=== PATIENT | female | born 1985 | race Caucasian/White ===

== ENCOUNTER 2019-10-12 16:32 | Emergency (ER) | payer MEDICAID ==
[~2019-10-12] VITALS: Ht 157.5 cm; Wt 88.9 kg
[2019-10-12 16:37] VITALS: BP 110/70
--- NOTE | 2019-10-12 16:52 | NUR ---
SENT BY URGENT CARE FOR COUGH. PLACED ON 2 L NC BY URGENT CARE AND EMS. PT REPORTS INCREASED WORK OF BREATHING SINCE THIS AM DESPITE USING AT HOME INHALER. URGENT CARE WANTS TO RULE OUT PE. PATIENT STATES CHEST DYSCOMFORT OF 5/10 AT THIS TIME. PATIENT POSITIONED FOR COMFORT; HOB ELEVATED; BEDRAILS UP X2; BED DOWN. ER MD MADE AWARE OF PT STATUS.
[2019-10-12] MEDS ORDERED: IPRATROPIUM 0.02% 0.5 MG/2.5 ML NEBU INH ONE (17:45)
[2019-10-12] MEDS ORDERED: ALBUTEROL 0.083% 2.5 MG/3 ML NEBU INH ONE (17:45)
[2019-10-12] MEDS ORDERED: predniSONE 20 MG TAB PO ONE (17:45)
[2019-10-12 18:11] LABS: BASOPHILS % (AUTO) 0.4 % (0.0-2.0); EOSINOPHILS # (AUTO) 0.1 K/uL (0-0.4); EOSINOPHILS % (AUTO) 1.2 % (0.0-4.0); HEMOGLOBIN 14.4 g/dL (12.0-16.0); LYMPHOCYTES # (AUTO) 1.7 K/uL (2.5-16.5); LYMPHOCYTES % (AUTO) 19.7 % (20.5-51.1); MEAN CORPUSCULAR HEMOGLOBIN 33 pg (27-31); MEAN CORPUSCULAR HGB CONC 35 g/dL (33-37); MONOCYTES # (AUTO) 0.5 K/uL (0.8-1.0); MONOCYTES % (AUTO) 6.3 % (1.7-9.3); NEUTROPHILS # (AUTO) 6.1 K/uL (1.8-7.7); NEUTROPHILS % (AUTO) 72.4 % (42.2-75.2); PLATELET COUNT (AUTO) 196 K/uL (140-450); RED BLOOD CELL COUNT(AUTO) 4.36 MIL/uL (4.20-5.40); RED CELL DISTRIBUTION WIDTH 12.5 % (11.6-13.7); WHITE BLOOD COUNT (AUTO) 8.5 K/uL (4.8-10.8)
[2019-10-12 18:26] LABS: ALBUMIN 3.7 g/dL (3.4-5.0); ANION GAP 7.5 (8-16); CARBON DIOXIDE 30.7 mmol/L (21-32); CREATININE 0.8 mg/dL (0.6-1.3); POTASSIUM 3.2 mmol/L (3.5-5.1); TOTAL BILIRUBIN 0.6 mg/dL (0.0-1.0)
[2019-10-12 18:32] LABS: PROTHROMBIN TIME 9.9 secs (10.8-13.4)
--- NOTE | 2019-10-12 19:18 | NUR ---
Pt report given to JANKI MCKENZIE. Transfer of care at this time.
--- NOTE | 2019-10-12 19:27 | NUR ---
PATIENT ALERT AND AWAKE, BREATHING EVEN AND UNLABORED. GIVEN UPDATE WE ARE WAITING FOR CT
--- NOTE | 2019-10-12 20:01 | NUR ---
PT TAKEN TO CT
--- NOTE | 2019-10-12 20:19 | NUR ---
PT RETURN FROM CT
--- NOTE | 2019-10-12 20:45 | NUR ---
Dr. Payton examining patient.
[2019-10-12 21:01] VITALS: BP 120/75
--- NOTE | 2019-10-12 21:01 | NUR ---
Patient discharged with v/s stable. Written and verbal after care instructions about asthma given and explained. Patient alert, oriented and verbalized understanding of instructions. Ambulatory with steady gait. All questions addressed prior to discharge. ID band removed. Patient advised to follow up with PMD. Rx of prednisone given. Patient educated on indication of medication including possible reaction and side effects. Opportunity to ask questions provided and answered.
== END 2019-10-12 21:01 | disposition home or self-care (01) ==
LOC: MED 16:32
DX: J45.901 Unspecified asthma with (acute) exacerbation (principal); R51 Headache; Z88.1 Allergy status to other antibiotic agents; Z88.8 Allergy status to other drugs, medicaments and biological substances
CPT/HCPCS: 36415; 36600; 71275; 80053; 81025; 82803; 83880; 84484; 85025; 85379; 85610; 85730; 93005; 94640; 99291; J7512; J7613; J7644; Q9967

== ENCOUNTER 2020-04-14 07:45 | Emergency (ER) | payer MEDICAID ==
[~2020-04-14] VITALS: Ht 157.5 cm; Wt 86.6 kg
[2020-04-14 07:48] VITALS: BP 114/89
--- NOTE | 2020-04-14 07:56 | NUR ---
Patient ambulated to bed 5. RN evaluating patient at bedside.
--- NOTE | 2020-04-14 08:05 | NUR ---
34 YEAR OLD FEMALE COMPLAINS OF RASH IN BUTTOCKS REGTION. PT STATES THAT THIS RASH JUST STARTED WEEK AGO AND IS WORRIED BECAUSE THESE SYMPTOMS SIMILAR TO PREVIOUS RYAN SARIAH SYNDROME FLAREUP. PT WORRIED ABOUT NEW MEDICATION FOR SEIZURES SHE STARTED FOR SEIZURES IN FEBRUARY BEING THE REASON. PT STATES RASH IS ITCHY, NOT AWARE OF ANY DISCHARGE. PT AOX4, BREATHING EVEN AND UNLABORED, SKIN WARM AND DRY. BED IN LOWEST POSITION, LOCKED, BED RAIL UPX1. PMH - RYAN SARIAH SYNDROME, ASTHMA, SEIZURE, RAZA RAZA DISEASE
--- NOTE | 2020-04-14 08:07 | NUR ---
DR. TORRES EVALUATING PT AT BEDSIDE
[2020-04-14] MEDS ORDERED: predniSONE 20 MG TAB PO ONE (08:35)
--- NOTE | 2020-04-14 08:45 | NUR ---
ZULEMAD MADE AWARE PT JUST REMEMBERED SHE WANTED TO TELL HIM THAT HER EYES HAVE BEEN DRY AND SORE THROAT. PER ERMD SHE HAS TO TAKE BENADRYL WHEN SHE GETS HOME, WILL NOT GET IT HERE BECAUSE SHE DROVE. PT MADE AWARE
--- NOTE | 2020-04-14 09:10 | NUR ---
Patient discharged with v/s stable. Written and verbal after care instructions about rash given and explained. Patient alert, oriented and verbalized understanding of instructions. Ambulatory with steady gait. All questions addressed prior to discharge. ID band removed. Patient advised to follow up with PMD. Rx of prednisone given. Patient educated on indication of medication including possible reaction and side effects. Opportunity to ask questions provided and answered.
[2020-04-14 09:14] VITALS: BP 125/82
== END 2020-04-14 09:10 | disposition home or self-care (01) ==
LOC: MED 07:45
DX: R21 Rash and other nonspecific skin eruption (principal); J45.909 Unspecified asthma, uncomplicated; L51.1 Stevens-Johnson syndrome; Q82.8 Other specified congenital malformations of skin; R56.9 Unspecified convulsions; Z88.7 Allergy status to serum and vaccine; Z88.1 Allergy status to other antibiotic agents; Z88.6 Allergy status to analgesic agent
CPT/HCPCS: 81002; 81025; 99283; J7512

== ENCOUNTER 2021-02-04 19:42 | Emergency (ER) | payer MEDICAID ==
[~2021-02-04] VITALS: Ht 157.5 cm; Wt 86.2 kg
[2021-02-04 19:49] VITALS: BP 109/52
--- NOTE | 2021-02-04 19:49 | NUR ---
TO BED AMBULATORY
--- NOTE | 2021-02-04 20:18 | NUR ---
Said examining patient.
[2021-02-04] MEDS ORDERED: KETOROLAC 15 MG/ML VIAL IM ONE (20:25)
[2021-02-04] MEDS ORDERED: ACETAMINOPHEN EXTRA STRENGTH 500 MG TAB ONE (20:29)
[2021-02-04] MEDS ORDERED: ACETAMINOPHEN EXTRA STRENGTH 500 MG TAB PO ONE ×2 (20:50→23:40)
[2021-02-04 21:12] LABS: BASOPHILS % (AUTO) 0.6 % (0.0-2.0); EOSINOPHILS # (AUTO) 0.1 K/uL (0-0.4); EOSINOPHILS % (AUTO) 1.5 % (0.0-4.0); HEMATOCRIT 39.1 % (36-48); HEMOGLOBIN 13.3 g/dL (12.0-16.0); LYMPHOCYTES # (AUTO) 2.9 K/uL (2.5-16.5); LYMPHOCYTES % (AUTO) 37.1 % (20.5-51.1); MEAN CORPUSCULAR HEMOGLOBIN 32 pg (27-31); MEAN CORPUSCULAR HGB CONC 34 g/dL (33-37); MEAN CORPUSCULAR VOLUME 93.5 fL (80-94); MONOCYTES # (AUTO) 0.6 K/uL (0.8-1.0); MONOCYTES % (AUTO) 7.3 % (1.7-9.3); NEUTROPHILS # (AUTO) 4.1 K/uL (1.8-7.7); NEUTROPHILS % (AUTO) 53.5 % (42.2-75.2); PLATELET COUNT (AUTO) 270 K/uL (140-450); RED BLOOD CELL COUNT(AUTO) 4.18 MIL/uL (4.20-5.40); RED CELL DISTRIBUTION WIDTH 13.3 % (11.6-13.7); WHITE BLOOD COUNT (AUTO) 7.7 K/uL (4.8-10.8)
[2021-02-04 21:26] LABS: ALBUMIN 3.4 g/dL (3.4-5.0); ANION GAP 11.7 (8-16); CARBON DIOXIDE 26.2 mmol/L (21-32); CREATININE 0.8 mg/dL (0.6-1.3); POTASSIUM 3.9 mmol/L (3.5-5.1); TOTAL BILIRUBIN 0.4 mg/dL (0.0-1.0)
--- NOTE | 2021-02-04 22:04 | NUR ---
NAD at this time. VSS
--- NOTE | 2021-02-04 22:44 | NUR ---
pt taken to CT via w/c
--- NOTE | 2021-02-04 23:07 | NUR ---
Dr. Miguel examining patient.
[2021-02-04] MEDS ORDERED: AMOXIL/CLAVULANATE 875/125 MG 1 TAB PO ONE (23:40)
[2021-02-04] MEDS ORDERED: LIDOCAINE 2% 1000 MG/50 ML VIAL INJ ONE (23:40)
[2021-02-05 00:32] VITALS: BP 106/63
[2021-02-05] MEDS ORDERED: AMOX-1000 PO (00:49)
--- NOTE | 2021-02-05 01:02 | NUR ---
d/c with VSS. d/c education given. opportunity to ask questions given and answered. rx of augmentin given. IV sites removed, bleeding controlled with sterile gauze and reinfoced with tape.
== END 2021-02-05 01:02 | disposition home or self-care (01) ==
LOC: MED 19:42
DX: R07.9 Chest pain, unspecified (principal); K08.89 Other specified disorders of teeth and supporting structures; R06.02 Shortness of breath; Z88.8 Allergy status to other drugs, medicaments and biological substances; Z88.6 Allergy status to analgesic agent
CPT/HCPCS: 36415; 71045; 71275; 80053; 83735; 83880; 84484; 84703; 85025; 85379; 93005; 99285; J2001; Q9967; J1885

== ENCOUNTER 2021-03-02 13:53 | Emergency (ER) | payer MEDICAID ==
[~2021-03-02] VITALS: Ht 167.6 cm; Wt 68.9 kg
[~2021-03-02 13:53] MED LIST: AMOX-1000 PO
[2021-03-02 14:07] VITALS: BP 117/74
--- NOTE | 2021-03-02 14:10 | NUR ---
Patient assisted from ambulance rney onto bed 12.
--- NOTE | 2021-03-02 14:24 | NUR ---
seafood technology specialist at pt bedside.
--- NOTE | 2021-03-02 14:39 | NUR ---
FLOR Bradley is evaluating patient at bedside.
[2021-03-02] MEDS ORDERED: NACL 0.9% 1,000 ML IV ONE (14:45)
[2021-03-02] MEDS ORDERED: KETOROLAC 15 MG/ML VIAL IVP ONE (14:45)
--- NOTE | 2021-03-02 15:02 | NUR ---
RECEIVED IN ED 12, PATIENT STATES SHE FELT FEVERISH EARLIER, HR WAS RAPID, DROVE SELF TO URGENT CARE, DEVELOPED CHEST PAIN, TRANSPORTED BY [facility], #20 ANGIO NOTED TO RIGHT AC, PLACED ON PREPARATION PLANT REPAIRER SHOWING ST @119, PATIENT TALKING CONTINUOUSLY, EXPRESSING ANXIETY REGARDING POSS REINFECTION OF COVID 19. PATIENT HAD COVID IN JUNE, NOT HOSPITALIZED, HAS QUARANTINED SINCE THAT TIME, FREQUENT COVID TESTING. SKIN IS W/D RESP EVEN AND UNLABORED,BREATH SOUNDS ARE CLEAR, NO WHEEZING HEARD. HX OF ASTHMA AND POLYNEUROPATHY. EXAM AND EVAL BY FLOR.
[2021-03-02 15:07] LABS: BASOPHILS # (AUTO) 0.1 K/uL (0.00-0.22); BASOPHILS % (AUTO) 0.3 % (0.0-2.0); EOSINOPHILS % (AUTO) 0.1 % (0.0-4.0); HEMATOCRIT 40.6 % (36-48); HEMOGLOBIN 13.8 g/dL (12.0-16.0); LYMPHOCYTES # (AUTO) 1.1 K/uL (2.5-16.5); LYMPHOCYTES % (AUTO) 6.9 % (20.5-51.1); MEAN CORPUSCULAR HEMOGLOBIN 32 pg (27-31); MEAN CORPUSCULAR HGB CONC 34 g/dL (33-37); MEAN CORPUSCULAR VOLUME 93.1 fL (80-94); MONOCYTES # (AUTO) 0.4 K/uL (0.8-1.0); MONOCYTES % (AUTO) 2.5 % (1.7-9.3); NEUTROPHILS # (AUTO) 14.9 K/uL (1.8-7.7); NEUTROPHILS % (AUTO) 90.2 % (42.2-75.2); PLATELET COUNT (AUTO) 225 K/uL (140-450); RED BLOOD CELL COUNT(AUTO) 4.37 MIL/uL (4.20-5.40); RED CELL DISTRIBUTION WIDTH 13.2 % (11.6-13.7); WHITE BLOOD COUNT (AUTO) 16.6 K/uL (4.8-10.8)
[2021-03-02] MEDS ORDERED: MORPHINE SULFATE 2 MG/ML SYR IVP ONE ×2 (15:15→17:00)
--- NOTE | 2021-03-02 15:19 | NUR ---
Dr. Thorne is evaluating the patient at bedside.
[2021-03-02 15:24] LABS: ALBUMIN 3.7 g/dL (3.4-5.0); CARBON DIOXIDE 23.8 mmol/L (21-32); CREATININE 0.7 mg/dL (0.6-1.3); POTASSIUM 3.8 mmol/L (3.5-5.1); TOTAL BILIRUBIN 0.8 mg/dL (0.0-1.0)
--- NOTE | 2021-03-02 15:31 | NUR ---
HEADACHE DECREASED, RESTING QUIETLY AWAITING RESULTS.
--- NOTE | 2021-03-02 15:32 | NUR ---
JOHN RAY UPDATED
--- NOTE | 2021-03-02 16:22 | NUR ---
PATIENT IS REQUESTING MOR PAINMEDICATION, DECLINES TYLENOL AT THIS TIME. REQUESTING TO SPEAK WITH DOCTOR. JOHN RAY NOTIFIED. WILL BE IN.
--- NOTE | 2021-03-02 16:27 | NUR ---
FLOR Bradley is reevaluating patient at bedside.
--- NOTE | 2021-03-02 16:40 | NUR ---
Covid tahmina and Influenza swab collected, walked to lab and handed to CPT iD.
--- NOTE | 2021-03-02 16:45 | NUR ---
MOTHER AT BEDSIDE
--- NOTE | 2021-03-02 17:00 | NUR ---
HEADACHE PERSISTING, PA AWARE, ORDERS REC'D
--- NOTE | 2021-03-02 17:07 | NUR ---
MEDICATED WITH MORPHINE 2MG IVP FOR C/O PERSISTANT HEADACHE, OBSERVED FOR EFFECT.
[2021-03-02] MEDS ORDERED: PROM118S5 PO (17:20)
--- NOTE | 2021-03-02 17:28 | NUR ---
LAB RESULTS COPY PROVIDED TO PATIENT.
[2021-03-02 17:29] VITALS: BP 121/74
--- NOTE | 2021-03-02 17:29 | NUR ---
Patient discharged with v/s stable. Written and verbal after care instructions given and explained. Patient alert, oriented and verbalized understanding of instructions. Ambulatory with steady gait. All questions addressed prior to discharge. ID band removed. Patient advised to follow up with PMD. Rx of Promethazine/Dextromethorphan given. Patient educated on indication of medication including possible reaction and side effects. Opportunity to ask questions provided and answered.
== END 2021-03-02 17:29 | disposition home or self-care (01) ==
LOC: EDUNIT# 13:53 → MED 13:53
DX: R07.9 Chest pain, unspecified (principal); K04.7 Periapical abscess without sinus; J06.9 Acute upper respiratory infection, unspecified; J45.909 Unspecified asthma, uncomplicated; Z20.822 Contact with and (suspected) exposure to COVID-19; Z88.8 Allergy status to other drugs, medicaments and biological substances; Z88.6 Allergy status to analgesic agent; Z79.899 Other long term (current) drug therapy
CPT/HCPCS: 36415; 71045; 80053; 81002; 81025; 85025; 87426; 87804; 93005; 96361; 96374; 96376; 99285; J2270; J7030; J1885

== ENCOUNTER 2022-07-16 17:53 | Emergency (ER) | payer MEDICAID ==
[~2022-07-16] VITALS: Ht 157.5 cm; Wt 92.1 kg
[~2022-07-16 17:53] MED LIST changes: +PROM118S5 PO
[2022-07-16 18:29] VITALS: BP 129/80
[2022-07-16 19:18] LABS: BASOPHILS # (AUTO) 0.1 K/uL (0.00-0.22); BASOPHILS % (AUTO) 0.5 % (0.0-2.0); EOSINOPHILS # (AUTO) 0.2 K/uL (0-0.4); HEMATOCRIT 42.2 % (36-48); HEMOGLOBIN 14.4 g/dL (12.0-16.0); LYMPHOCYTES # (AUTO) 3.9 K/uL (2.5-16.5); LYMPHOCYTES % (AUTO) 37.4 % (20.5-51.1); MEAN CORPUSCULAR HEMOGLOBIN 32 pg (27-31); MEAN CORPUSCULAR HGB CONC 34 g/dL (33-37); MONOCYTES # (AUTO) 0.4 K/uL (0.8-1.0); NEUTROPHILS # (AUTO) 5.9 K/uL (1.8-7.7); NEUTROPHILS % (AUTO) 56.1 % (42.2-75.2); PLATELET COUNT (AUTO) 292 K/uL (140-450); RED BLOOD CELL COUNT(AUTO) 4.54 MIL/uL (4.20-5.40); RED CELL DISTRIBUTION WIDTH 12.8 % (11.6-13.7); WHITE BLOOD COUNT (AUTO) 10.5 K/uL (4.8-10.8)
[2022-07-16 19:21] LABS: APPEARANCE,URINE SL CLOUDY (CLEAR); BILIRUBIN,URINE NEGATIVE (NEGATIVE); BLOOD, URINE 2+ (NEGATIVE); COLOR,URINE YELLOW (YELLOW); LEUKOCYTE ESTERASE ,URINE 1+ (NEGATIVE); NITRITE, URINE NEGATIVE (NEGATIVE); UGLUCOSE NEGATIVE (NEGATIVE)
[2022-07-16 19:33] LABS: ANION GAP 11.6 (8-16); CARBON DIOXIDE 30.9 mmol/L (21-32); CREATININE 0.7 mg/dL (0.6-1.3); POTASSIUM 4.5 mmol/L (3.5-5.1)
[2022-07-16] MEDS ORDERED: PHEN-1877 PO (20:45)
[2022-07-16] MEDS ORDERED: CEPH-588 PO (20:45)
--- NOTE | 2022-07-16 20:51 | NUR ---
Dr. Venegas explained results and treatment plans.
[2022-07-16 20:57] VITALS: BP 129/80
--- NOTE | 2022-07-16 20:57 | NUR ---
Patient discharged with v/s stable. Written and verbal after care instructions given and explained. Patient alert, oriented and verbalized understanding of instructions. Ambulatory with steady gait. All questions addressed prior to discharge. ID band removed. Patient advised to follow up with PMD. Rx of KEFLEX AND PYRIDIUM given. Patient educated on indication of medication including possible reaction and side effects. Opportunity to ask questions provided and answered.
== END 2022-07-16 20:57 | disposition home or self-care (01) ==
LOC: MED 17:53
DX: N39.0 Urinary tract infection, site not specified (principal); R11.2 Nausea with vomiting, unspecified; R07.9 Chest pain, unspecified; R19.7 Diarrhea, unspecified; R53.1 Weakness; J45.909 Unspecified asthma, uncomplicated; Z79.899 Other long term (current) drug therapy; Z88.1 Allergy status to other antibiotic agents; Z88.8 Allergy status to other drugs, medicaments and biological substances
CPT/HCPCS: 36415; 74018; 80048; 81001; 81025; 85025; 87086; 99284

== ENCOUNTER 2022-11-18 05:13 | Emergency (ER) | payer MEDICAID ==
[~2022-11-18] VITALS: Ht 157.5 cm; Wt 89.8 kg
[~2022-11-18 05:13] MED LIST changes: +CEPH-588 PO; +PHEN-1877 PO
[2022-11-18 05:23] VITALS: BP 159/101
--- NOTE | 2022-11-18 05:23 | NUR ---
o left upper abd pain since august, worse today 05/20. per pt, blood in stool. pmhx liver disease and allergy doxycycline, naproxen, toradol, cymbalta, tetanus vaccine
--- NOTE | 2022-11-18 05:32 | NUR ---
to restroom for urine then lobby
[2022-11-18] MEDS ORDERED: NACL 0.9% 1,000 ML IV SCH (05:35)
--- NOTE | 2022-11-18 05:35 | NUR ---
c/o left upper abd pain since august, worse today 05/20. per pt, blood in stool. pmhx liver disease and allergy doxycycline, naproxen, toradol, cymbalta, tetanus vaccine
--- NOTE | 2022-11-18 05:37 | NUR ---
PT TO BED #1
--- NOTE | 2022-11-18 05:42 | NUR ---
urine collected sent to lab
[2022-11-18 05:45] LABS: APPEARANCE,URINE CLEAR (CLEAR); BILIRUBIN,URINE 1+ (NEGATIVE); BLOOD, URINE 2+ (NEGATIVE); COLOR,URINE YELLOW (YELLOW); LEUKOCYTE ESTERASE ,URINE 1+ (NEGATIVE); NITRITE, URINE NEGATIVE (NEGATIVE); UGLUCOSE NEGATIVE (NEGATIVE)
[2022-11-18 06:07] LABS: BASOPHILS % (AUTO) 0.5 % (0.0-2.0); EOSINOPHILS # (AUTO) 0.7 K/uL (0-0.4); EOSINOPHILS % (AUTO) 7.7 % (0.0-4.0); HEMATOCRIT 40.7 % (36-48); HEMOGLOBIN 13.8 g/dL (12.0-16.0); LYMPHOCYTES # (AUTO) 2.6 K/uL (2.5-16.5); LYMPHOCYTES % (AUTO) 29.8 % (20.5-51.1); MEAN CORPUSCULAR HEMOGLOBIN 32 pg (27-31); MEAN CORPUSCULAR HGB CONC 34 g/dL (33-37); MEAN CORPUSCULAR VOLUME 94.4 fL (80-94); MONOCYTES # (AUTO) 0.5 K/uL (0.8-1.0); MONOCYTES % (AUTO) 5.2 % (1.7-9.3); NEUTROPHILS # (AUTO) 4.9 K/uL (1.8-7.7); NEUTROPHILS % (AUTO) 56.8 % (42.2-75.2); PLATELET COUNT (AUTO) 283 K/uL (140-450); RED BLOOD CELL COUNT(AUTO) 4.32 MIL/uL (4.20-5.40); RED CELL DISTRIBUTION WIDTH 12.8 % (11.6-13.7); WHITE BLOOD COUNT (AUTO) 8.6 K/uL (4.8-10.8)
[2022-11-18] MEDS ORDERED: MORPHINE SULFATE 4 MG/ML SYR IVP ONE ×2 (06:30→09:10)
[2022-11-18] MEDS ORDERED: ONDANSETRON 4 MG/2 ML VIAL IVP ONE ×2 (06:30→09:10)
[2022-11-18 06:44] LABS: ALBUMIN 3.4 g/dL (3.4-5.0); ANION GAP 14.9 (8-16); CARBON DIOXIDE 25.9 mmol/L (21-32); CREATININE 0.9 mg/dL (0.6-1.3); POTASSIUM 3.8 mmol/L (3.5-5.1)
--- NOTE | 2022-11-18 06:45 | NUR ---
ultrasound by bedside
[2022-11-18 07:12] VITALS: BP 127/86
[2022-11-18] MEDS ORDERED: cephALEXin 500 MG CAP PO ONE (07:20)
[2022-11-18] MEDS ORDERED: PHEN-1877 PO (07:45)
[2022-11-18] MEDS ORDERED: CEPH-588 PO (07:45)
[2022-11-18] MEDS ORDERED: BEN10 PO (07:48)
--- NOTE | 2022-11-18 09:53 | NUR ---
Patient discharged with v/s stable. Written and verbal after care instructions given and explained. Patient alert, oriented and verbalized understanding of instructions. Ambulatory with steady gait. All questions addressed prior to discharge. ID band removed. Patient advised to follow up with PMD. Rx of BENTYL, KEFLEX given. Patient educated on indication of medication including possible reaction and side effects. Opportunity to ask questions provided and answered.
== END 2022-11-18 09:40 | disposition home or self-care (01) ==
LOC: MED 05:13
DX: N39.0 Urinary tract infection, site not specified (principal); J45.909 Unspecified asthma, uncomplicated; Z79.899 Other long term (current) drug therapy
CPT/HCPCS: 36415; 76705; 80053; 81001; 81025; 83690; 85025; 87086; 96361; 96374; 96375; 96376; 99285; J2270; J2405; J7030; Q0092; 99284

== ENCOUNTER 2023-01-04 18:11 | Emergency (ER) | payer MEDICAID ==
[~2023-01-04] VITALS: Ht 160 cm; Wt 85.3 kg
[~2023-01-04 18:11] MED LIST changes: +BEN10 PO
[2023-01-04 18:17] VITALS: BP 118/78
[2023-01-04] MEDS ORDERED: MORPHINE SULFATE 4 MG/ML SYR IM ONE (19:15)
--- NOTE | 2023-01-04 19:27 | NUR ---
Patient taken to bed 4.
--- NOTE | 2023-01-04 19:36 | NUR ---
urine to lab.
--- NOTE | 2023-01-04 19:41 | NUR ---
Patient taken to X-ray via WC.
--- NOTE | 2023-01-04 19:58 | NUR ---
PT RETURN FROM XRAY
[2023-01-04] MEDS ORDERED: CYCL-711 PO ×2 (20:28→21:04)
[2023-01-04] MEDS ORDERED: ACET-8905 PO ×2 (20:28→21:04)
[2023-01-04] MEDS ORDERED: HYDROcodone/APAP 5/325 MG 1 TAB TAB PO ONE (20:35)
--- NOTE | 2023-01-04 20:46 | NUR ---
Dr. Nix explained results and treatment plans.
--- NOTE | 2023-01-04 21:20 | NUR ---
Patient discharged with v/s stable. Written and verbal after care instructions given and explained. Patient alert, oriented and verbalized understanding of instructions. with steady gait. All questions addressed prior to discharge. ID band removed. Patient advised to follow up with PMD. Rx of HYDROCODON-ACETAMINOPHEN and FLEXERIL given. Patient educated on indication of medication including possible reaction and side effects. Opportunity to ask questions provided and answered.
[2023-01-04 21:35] VITALS: BP 123/78
== END 2023-01-04 21:20 | disposition home or self-care (01) ==
LOC: MED 18:11
DX: S16.1XXA Strain of muscle, fascia and tendon at neck level, initial encounter (principal); S39.012A Strain of muscle, fascia and tendon of lower back, initial encounter; R07.89 Other chest pain; J45.909 Unspecified asthma, uncomplicated; Z88.1 Allergy status to other antibiotic agents; Z88.8 Allergy status to other drugs, medicaments and biological substances; Z79.899 Other long term (current) drug therapy; V89.2XXA Person injured in unspecified motor-vehicle accident, traffic, initial encounter; Y93.89 Activity, other specified; Y92.89 Other specified places as the place of occurrence of the external cause; Y99.8 Other external cause status
CPT/HCPCS: 71045; 72040; 72100; 81025; 96372; 99284; J2270

== ENCOUNTER 2023-01-15 08:41 | Emergency (ER) | payer MEDICAID, OTHER ==
[~2023-01-15] VITALS: Ht 162.6 cm; Wt 86.2 kg
[~2023-01-15 08:41] MED LIST changes: +ACET-8905 PO; +CYCL-711 PO
[2023-01-15 08:52] VITALS: BP 112/68
[2023-01-15] MEDS ORDERED: MORPHINE SULFATE 4 MG/ML SYR IVP ONE (09:15)
--- NOTE | 2023-01-15 09:15 | NUR ---
MD DOVER AT BEDSIDE FOR MSE.
[2023-01-15 10:03] LABS: BASOPHILS % (AUTO) 0.5 % (0.0-2.0); EOSINOPHILS # (AUTO) 0.3 K/uL (0-0.4); HEMATOCRIT 42.6 % (36-48); HEMOGLOBIN 14.6 g/dL (12.0-16.0); LYMPHOCYTES # (AUTO) 2.6 K/uL (2.5-16.5); LYMPHOCYTES % (AUTO) 38.7 % (20.5-51.1); MEAN CORPUSCULAR HEMOGLOBIN 32 pg (27-31); MEAN CORPUSCULAR HGB CONC 34 g/dL (33-37); MONOCYTES # (AUTO) 0.4 K/uL (0.8-1.0); MONOCYTES % (AUTO) 6.4 % (1.7-9.3); NEUTROPHILS # (AUTO) 3.3 K/uL (1.8-7.7); NEUTROPHILS % (AUTO) 49.4 % (42.2-75.2); PLATELET COUNT (AUTO) 234 K/uL (140-450); RED BLOOD CELL COUNT(AUTO) 4.58 MIL/uL (4.20-5.40); WHITE BLOOD COUNT (AUTO) 6.6 K/uL (4.8-10.8)
[2023-01-15 10:22] LABS: ALBUMIN 3.6 g/dL (3.4-5.0); ANION GAP 11.7 (8-16); CARBON DIOXIDE 28.2 mmol/L (21-32); CREATININE 0.6 mg/dL (0.6-1.3); POTASSIUM 3.9 mmol/L (3.5-5.1); TOTAL BILIRUBIN 0.5 mg/dL (0.0-1.0)
[2023-01-15 10:26] LABS: APPEARANCE,URINE CLEAR (CLEAR); BILIRUBIN,URINE NEGATIVE (NEGATIVE); BLOOD, URINE 1+ (NEGATIVE); COLOR,URINE YELLOW (YELLOW); LEUKOCYTE ESTERASE ,URINE NEGATIVE (NEGATIVE); NITRITE, URINE NEGATIVE (NEGATIVE); UGLUCOSE NEGATIVE (NEGATIVE)
[2023-01-15 10:30] LABS: RBC,URINE 11-20 (MOD) /HPF (0-5)
[2023-01-15] MEDS ORDERED: IBUP-2213 PO (12:06)
[2023-01-15] MEDS ORDERED: ACET-8905 PO (12:06)
--- NOTE | 2023-01-15 12:20 | NUR ---
Patient discharged with v/s stable. Written and verbal after care instructions given and explained. Patient alert, oriented and verbalized understanding of instructions. Ambulatory with steady gait. All questions addressed prior to discharge. ID band removed. Patient advised to follow up with PMD. Rx of IBUPROFEN, NORCO given. Patient educated on indication of medication including possible reaction and side effects. Opportunity to ask questions provided and answered.
[2023-01-15 12:30] VITALS: BP 112/75
== END 2023-01-15 12:20 | disposition home or self-care (01) ==
LOC: MED 08:41
DX: R10.9 Unspecified abdominal pain (principal); M25.562 Pain in left knee; J45.909 Unspecified asthma, uncomplicated; Z79.899 Other long term (current) drug therapy; Z88.1 Allergy status to other antibiotic agents; Z88.8 Allergy status to other drugs, medicaments and biological substances; V89.2XXA Person injured in unspecified motor-vehicle accident, traffic, initial encounter; Y93.89 Activity, other specified; Y92.89 Other specified places as the place of occurrence of the external cause; Y99.8 Other external cause status
CPT/HCPCS: 36415; 73562; 74177; 80053; 81001; 81025; 83690; 85025; 87086; 96374; 99285; J2270; Q9967